=== PATIENT | male | born 1955 | race Caucasian/White ===

== ENCOUNTER → 2025-02-20 07:00 | Outpatient (REF) | payer BC, SELFPAY | LOC: HWRCS 07:00 | PROVIDERS: ATTENDING PHYSICIAN Internal Medicine Cardiovascular Disease | DX: I25.10 Atherosclerotic heart disease of native coronary artery without angina pectoris (principal); Z95.1 Presence of aortocoronary bypass graft | CPT/HCPCS: 93306 ==